=== PATIENT | male | born 1945 | race Caucasian/White ===

== ENCOUNTER → 2024-07-28 | Outpatient (REF) | payer MEDICARE ==
[~2024-07-28] MED LIST: IOPAMIDOL 370 MG/ML 100 ML INFUS..BTL INJ ONE
[2024-07-28 14:02] LABS: CREATININE, SERUM 1.26 mg/dL (0.72-1.25)
== END ==
LOC: CT 13:21
PROVIDERS: ATTEND Internal Medicine
DX: R06.02 Shortness of breath (principal); R55 Syncope and collapse
CPT/HCPCS: 36415; 71260; 82565; 84520; Q9967